=== PATIENT | male | born 1945 | race Caucasian/White ===

== ENCOUNTER 2017-05-05 13:46 | Emergency (ER) | payer OTHER ==
[~2017-05-05] VITALS: Ht 175.3 cm; Wt 90.0 kg
[2017-05-05 13:56] VITALS: BP 124/85; PULSE 71; RESP 17
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
[2017-05-05] MEDS ORDERED: LORazepam 2 MG/ML VIAL IV PUSH ONE (14:15)
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
[2017-05-05] MEDS ORDERED: ACETAMINOPHEN/HYDROcodone 325 MG/5 MG TAB PO ONE (15:45)
[2017-05-05] MEDS ORDERED: NORC5TAB PO (16:35)
[2017-05-05] MEDS ORDERED: IBUP1TAB5 PO (16:35)
[2017-05-05] MEDS ORDERED: SODIUM CHLOR 0.9% 1000 ML INJ 1,000 ML IV SCH (16:53)
[2017-05-05] MEDS ORDERED: SODIUM CHLORIDE 0.9% FLUSH 10 ML FLUSH IV FLUSH PRN (17:00)
[2017-05-05 17:06] VITALS: BP 141/103; PULSE 86; RESP 17; O2SAT 98
[2017-05-05 17:24] VITALS: RESP 18
--- NOTE | 2017-05-07 00:15 | EKG ---
Date Performed: 05/05/2017 Time Performed: 17:24:23 PTAGE: 71 years EKG: Sinus rhythm MARKED LEFT AXIS DEVIATION LOW QRS VOLTAGE IN PRECORDIAL LEADS PATTERN CONSISTENT WITH PULMONARY DIS EASE ABNORMAL ECG NO PREVIOUS TRACING DOCTOR: Manan Mccauley Interpretating Date/Time 05/07/2017 00:15:12
== END 2017-05-05 17:58 | disposition home or self-care (01) ==
LOC: NEPD 13:46
DX: S42.292A Other displaced fracture of upper end of left humerus, initial encounter for closed fracture (principal); S00.31XA Abrasion of nose, initial encounter; R55 Syncope and collapse; V28.4XXA Motorcycle driver injured in noncollision transport accident in traffic accident, initial encounter
CPT/HCPCS: 29240; 70450; 70486; 71045; 73030; 93005